=== PATIENT | male | born 1965 | race African-American/Black ===

== ENCOUNTER 2016-06-21 08:44 | Day surgery (SDC) | payer OTHER ==
[~2016-06-21 08:44] MED LIST: EPINEPHRINE INJ 1 MG/10 ML DISP.SYRIN ONE; FLUMAZENIL INJ 0.5 MG/5 ML VIAL IV ONE; GLUCAGON,HUMAN RECOMB 1 MG INJ ONE; GLYCOPYRROLATE INJ 0.4 MG/2 ML VIAL ONE; LIDOCAINE 2% JELLY 30 ML TUBE ONE; NALOXONE HCL INJ/PF 0.4 MG/1 ML SDV ONE; ONDANSETRON HCL INJ/PF 4 MG/2 ML SDV ONE; PROMETHAZINE HCL INJ 25 MG/1 ML VIAL ONE
[2016-06-21] MEDS: MIDAZOLAM 2 MG/2 ML INJ ONE ×2 (09:04→09:07)
[2016-06-21] MEDS: FENTANYL CITRATE INJ/PF 100 MCG/2 ML AMPUL ONE ×2 (09:06→09:10)
[2016-06-21 10:57] VITALS: BP 127/73
[2016-06-21 11:11] LABS: ABSOLUTE LYMPHOCYTES (AUTO) 1.9 10^3/uL (0.5-4.7); ABSOLUTE MONOCYTES (AUTO) 0.4 10^3/uL (0.1-1.4); BASOPHILS % (AUTO) 0.4 % (0-2); EOSINOPHILS % (AUTO) 0.4 % (0-6); HEMATOCRIT 44.9 % (37.9-51.0); HEMOGLOBIN 14.9 g/dL (13.5-17.0); HGB HCT DIFFERENCE -0.2; LYMPHOCYTES % (AUTO) 30.1 % (13-45); MEAN CORPUSCULAR HEMOGLOBIN 30.1 pg (27.0-33.4); MEAN CORPUSCULAR HGB CONC 33.2 g/dL (32.0-36.0); MEAN CORPUSCULAR VOLUME 91 fl (80-97); MONOCYTES % (AUTO) 6.6 % (3-13); RED BLOOD COUNT 4.95 10^6/uL (4.35-5.55); RED CELL DISTRIBUTION WIDTH 14.2 % (11.5-14.0); SEGMENTED NEUTROPHILS % (AUTO) 62.5 % (42-78); WHITE BLOOD COUNT 6.5 10^3/uL (4.0-10.5)
[2016-06-21 11:29] LABS: ALANINE AMINOTRANSFERASE 26 U/L (21-72); ALBUMIN 4.7 g/dL (3.5-5.0); ALKALINE PHOSPHATASE 42 U/L (38-126); ANION GAP 10 (5-19); ASPARTATE AMINO TRANSFERASE 26 U/L (17-59); BILIRUBIN,DIRECT 0.1 mg/dL (0.0-0.4); BILIRUBIN,TOTAL 0.6 mg/dL (0.2-1.3); BLOOD UREA NITROGEN 9 mg/dL (7-20); CALCIUM 10.3 mg/dL (8.4-10.2); CARBON DIOXIDE 30 mmol/L (22-30); CHLORIDE 103 mmol/L (98-107); CREATININE RESULT 0.95 mg/dL (0.52-1.25); GLUCOSE 95 mg/dL (75-110); POTASSIUM 4.5 mmol/L (3.6-5.0); TOTAL PROTEIN 7.3 g/dL (6.3-8.2)
[2016-06-21 12:01] LABS: CARCINOEMBRYONIC ANTIGEN 0.9 ng/mL (<3.0)
--- NOTE | 2016-06-21 12:13 | OPERATIVE REPORT E ---
Operative Report NAME: REINALDO THOMPSON : 1965 AGE: 50Y DATE OF SURGERY: 06/21/2016 ROOM: PREOPERATIVE DIAGNOSES: 1. Colon screening. 2. Strong family history of colon cancer, father. OPERATION: Colonoscopy. SURGEON: EDYTA SWANN M.D. ANESTHESIA: 1. Versed 3 mg. 2. Fentanyl 100 mcg. TISSUE REMOVED OR ALTERED: None. DESCRIPTION OF PROCEDURE: RECTAL EXAM: External hemorrhoids, enlarged prostate. SIGMOID, DESCENDING COLON: Mild nonspecific colitis, erythema in the sigmoid. TRANSVERSE COLON: Normal. ASCENDING COLON: Normal. CECUM: Normal. Scope withdrawn from cecum, ascending, transverse, descending, sigmoid, all the way to the rectum. CONCLUSION: 1. External hemorrhoids. 2. Localized erythema in the sigmoid. 3. Mild colitis. 4. No polyps. 5. No malignancy. 6. Enlarged prostate. PLAN: 1. Lab studies. 2. Follow up office visit in the next few days. 3. Consider followup colonoscopy after 3-5 years. DICTATING PHYSICIAN: EDYTA SWANN M.D. [id number] PHY#: [id number] ID: [id number] JOB#: [id number] ACCT: [id number] cc:EDYTA SWANN M.D. , [facility] >
--- NOTE | 2016-06-21 12:18 | DISCHARGE SUMMARY E ---
Discharge Summary NAME: REINALDO THOMPSON : 1965 AGE: 50Y ADMITTED: 06/21/2016 DISCHARGED: 06/23/2016 FINAL DIAGNOSES: 1. ENLARGED PROSTATE. 2. EXTERNAL HEMORRHOIDS. 3. LOCALIZED SIGMOID COLITIS. HISTORY: A 50-year-old male with strong history of malignancy (father). Patient does use alcohol and marijuana. He has hernia repair. He has anxiety. His colon shows no polyps. No malignancy. DISCHARGE PLAN: 1. Lab study. 2. Consider follow-up colon, 3 to 5 years. FINAL DIAGNOSES: 1. EXTERNAL HEMORRHOIDS. 2, LOCALIZED ERYTHEMA IN THE SIGMOID COLON. 3. MILD COLITIS. DISCHARGE SUMMARY: Follow-up colon, 3 to 5 years. DICTATING PHYSICIAN: EDYTA SWANN M.D. [id number] PHY#: [id number] ID: [id number] JOB#: [id number] ACCT: [id number] cc:EDYTA SWANN M.D. >
== END 2016-06-21 10:45 | disposition home or self-care (01) ==
LOC: END 08:44
PROVIDERS: ATTEND Specialist
PROC: 0DJD8ZZ Inspection of Lower Intestinal Tract, Via Natural or Artificial Opening Endoscopic (ICD-10-PCS; principal; 2016-06-21 09:00)
DX: Z12.11 Encounter for screening for malignant neoplasm of colon (principal); K52.9 Noninfective gastroenteritis and colitis, unspecified; K64.4 Residual hemorrhoidal skin tags; Z80.0 Family history of malignant neoplasm of digestive organs; N40.0 Benign prostatic hyperplasia without lower urinary tract symptoms; Z79.1 Long term (current) use of non-steroidal anti-inflammatories (NSAID); Z79.899 Other long term (current) drug therapy
CPT/HCPCS: 45378; 36415; 82378; 84153; 85025; 80053; J2250; J3010; J1610; J0171; J2310; J2405; J2550; J3490

== ENCOUNTER 2016-08-22 09:49 | Observation (INO) | payer OTHER ==
--- NOTE | 2016-08-22 10:48 | ER Document Report ---
ED General - General Chief Complaint: Chest Pain Stated Complaint: CHEST PAIN Time Seen by Provider: 08/22/16 09:50 Mode of Arrival: Medic Information source: Patient Notes: 50 yr old male no previous cardiac hx presents with complaitns of chest pain . The pain is a pressure sensation pain down the left arm intermittently. pt notes the pain has been ongoing over the psat year worsened today. denies any hx of htn, hyperlipdemia or diabetes. TRAVEL OUTSIDE OF THE [place] IN LAST 30 DAYS: No - HPI Onset: Other Onset/Duration: Intermittent Quality of pain: Pressure Severity: Mild Pain Level: 1 Associated symptoms: Chest pain Exacerbated by: Denies Relieved by: Denies Similar symptoms previously: Yes Recently seen / treated by doctor: Yes - Related Data Allergies/Adverse Reactions: No Known Allergies Allergy (Verified 08/22/16 10:00) Past Medical History - Social History Smoking Status: Never Smoker Cigarette use (# per day): No Chew tobacco use (# tins/day): No Smoking Education Provided: No Frequency of alcohol use: Heavy Drug Abuse: None Family History: None - Past Medical History Cardiac Medical History: Denies: Hx Coronary Artery Disease, Hx Heart Attack, Hx Hypertension Pulmonary Medical History: Denies: Hx Asthma, Hx Bronchitis, Hx COPD, Hx Pneumonia Neurological Medical History: Denies: Hx Cerebrovascular Accident, Hx Seizures Musculoskeltal Medical History: Denies Hx Arthritis Psychiatric Medical History: Reports: Hx Anxiety, Hx Post Traumatic Stress Disorder Past Surgical History: Reports: Hx Abdominal Surgery - umbilical hernia removed as a child - Immunizations Hx Diphtheria, Pertussis, Tetanus Vaccination: Yes Review of Systems - Review of Systems Notes: PHYSICAL EXAMINATION: GENERAL: Well-appearing, well-nourished and in no acute distress. HEAD: Atraumatic, normocephalic. EYES: Pupils equal round and reactive to light, extraocular movements intact, sclera anicteric, conjunctiva are normal. ENT: Nares patent, oropharynx clear without exudates. Moist mucous membranes. NECK: Normal range of motion, supple without lymphadenopathy LUNGS: Breath sounds clear to auscultation bilaterally and equal. No wheezes rales or rhonchi. HEART: Regular rate and rhythm without murmurs ABDOMEN: Soft, nontender, nondistended abdomen. No guarding, no rebound. No masses appreciated. Musculoskeletal: Normal range of motion, no pitting or edema. No cyanosis. NEUROLOGICAL: Cranial nerves grossly intact. Normal speech, normal gait. Normal sensory, motor exams PSYCH: Normal mood, normal affect. SKIN: Right anterior chest wall lipoma Physical Exam - Vital signs Vitals: Temp Pulse Ox 98.1 F 100 08/22/16 09:51 08/22/16 09:51 Course - Re-evaluation Re-evalutation: 08/22/16 11:36 Set of cardiac enzymes and EKG are negative. Patient will require cardiac workup 08/22/16 11:41 - Vital Signs Vital signs: Temp Pulse Resp BP Pulse Ox 98.1 F 16 126/89 H 100 08/22/16 10:01 08/22/16 11:01 08/22/16 11:00 08/22/16 11:01 - Laboratory Result Diagrams: 08/22/16 10:16 08/22/16 10:16 Laboratory results interpreted by me: 08/22/16 10:16 WBC 3.9 L - Diagnostic Test Radiology reviewed: Image reviewed, Reports reviewed - EKG Interpretation by Nc EKG shows normal: Sinus rhythm, Under[place], Intervals, QRS Complexes Discharge - Discharge Clinical Impression: Chest pain Qualifiers: Chest pain type: unspecified Qualified Code(s): R07.9 - Chest pain, unspecified Shoulder pain, left Qualifiers: Chronicity: acute Qualified Code(s): M25.512 - Pain in left shoulder Condition: Stable Disposition: ADMITTED OBSERVATION Admitting Provider: Hospitalist Unit Admitted: Telemetry
[2016-08-22 10:58] LABS: ABSOLUTE LYMPHOCYTES (AUTO) 1.6 10^3/uL (0.5-4.7); ABSOLUTE MONOCYTES (AUTO) 0.3 10^3/uL (0.1-1.4); BASOPHILS % (AUTO) 0.6 % (0-2); EOSINOPHILS % (AUTO) 0.3 % (0-6); HEMATOCRIT 42.5 % (37.9-51.0); HEMOGLOBIN 14.1 g/dL (13.5-17.0); HGB HCT DIFFERENCE -0.2; LYMPHOCYTES % (AUTO) 40.6 % (13-45); MEAN CORPUSCULAR HEMOGLOBIN 30.2 pg (27.0-33.4); MEAN CORPUSCULAR HGB CONC 33.1 g/dL (32.0-36.0); MEAN CORPUSCULAR VOLUME 91 fl (80-97); MONOCYTES % (AUTO) 7.7 % (3-13); RED BLOOD COUNT 4.65 10^6/uL (4.35-5.55); RED CELL DISTRIBUTION WIDTH 13.8 % (11.5-14.0); SEGMENTED NEUTROPHILS % (AUTO) 50.8 % (42-78); WHITE BLOOD COUNT 3.9 10^3/uL (4.0-10.5)
--- NOTE | 2016-08-22 11:17 | RADIOLOGY REPORT (SQ) ---
EXAM DESCRIPTION: CHEST SINGLE VIEW COMPLETED DATE/TIME: 08/22/2016 11:09 am REASON FOR STUDY: chest pain COMPARISON: 02/14/2016 EXAM PARAMETERS: NUMBER OF VIEWS: One view. TECHNIQUE: Single frontal radiographic view of the chest acquired. RADIATION DOSE: NA LIMITATIONS: None. FINDINGS: LUNGS AND PLEURA: No opacities, masses or pneumothorax. No pleural effusion. MEDIASTINUM AND HILAR STRUCTURES: No masses. Contour normal. HEART AND VASCULAR STRUCTURES: Heart normal in size. Normal vasculature. BONES: No acute findings. HARDWARE: None in the chest. OTHER: No other significant finding. IMPRESSION: NO ACUTE RADIOGRAPHIC FINDING IN THE CHEST. TECHNICAL DOCUMENTATION: JOB ID: [id number]
[2016-08-22 11:22] LABS: CREATINE KINASE MB 0.62 ng/mL (<4.55); TROPONIN I 0.016 ng/mL
[2016-08-22 11:50] LABS: ALANINE AMINOTRANSFERASE 34 U/L (21-72); ALBUMIN 4.4 g/dL (3.5-5.0); ALKALINE PHOSPHATASE 47 U/L (38-126); ANION GAP 9 (5-19); ASPARTATE AMINO TRANSFERASE 32 U/L (17-59); BILIRUBIN,DIRECT 0.4 mg/dL (0.0-0.4); BILIRUBIN,TOTAL 0.6 mg/dL (0.2-1.3); BLOOD UREA NITROGEN 15 mg/dL (7-20); CALCIUM 9.8 mg/dL (8.4-10.2); CARBON DIOXIDE 27 mmol/L (22-30); CHLORIDE 103 mmol/L (98-107); CREATINE KINASE 175 U/L (55-170); CREATININE RESULT 1.04 mg/dL (0.52-1.25); GLUCOSE 106 mg/dL (75-110); POTASSIUM 4.7 mmol/L (3.6-5.0); SODIUM 138.8 mmol/L (137-145); TOTAL PROTEIN 7.1 g/dL (6.3-8.2)
[2016-08-22] MEDS ORDERED: ACETAMINOPHEN 325 MG TABLET PO ONE (11:52)
--- NOTE | 2016-08-22 11:55 | EKG REPORT ---
SEVERITY:- NORMAL ECG - SINUS RHYTHM : Confirmed by: Toby Ellis MD 22-Aug-2016 11:54:56
[2016-08-22] MEDS ORDERED: ENOXAPARIN SODIUM INJ 40 MG/0.4 ML DISP.SYRIN SUBCUT ONE (13:00)
[2016-08-22] MEDS ORDERED: LORAZEPAM 1 MG TABLET PO PRN (14:53)
[2016-08-22] MEDS ORDERED: FOLIC ACID 1 MG TABLET PO SCH (18:00)
[2016-08-22] MEDS ORDERED: LANSOPRAZOLE 30 MG TAB.RAP.DR PO ONE (18:00)
[2016-08-22] MEDS ORDERED: THIAMINE HCL 100 MG TABLET PO SCH (18:00)
[2016-08-22] MEDS ORDERED: ATORVASTATIN CALCIUM 40 MG TABLET PO SCH (22:00)
[2016-08-23 05:49] LABS: CHOLESTEROL 199.62 mg/dL (0-200); Direct HDL 80 mg/dL (>40); TRIGLYCERIDES 77 mg/dL (<150)
[2016-08-23 06:00] LABS: DIRECT LDL 85 mg/dL (<100)
[2016-08-23] MEDS ORDERED: LANSOPRAZOLE 30 MG TAB.RAP.DR PO SCH (06:00)
--- NOTE | 2016-08-23 07:24 | HISTORY AND PHYSICAL E ---
History and Physical NAME: REINALDO THOMPSON : 1965 AGE: 50Y ADMITTED: 08/22/2016 ROOM: 435 CODE STATUS: FULL CODE. PRIMARY CARE PROVID[facility]: [facility] CHIEF COMPLAINT: Chest pain. HISTORY OF PRESENT ILLNESS: The patient is a 50-year-old -[place] male with a past medical history of osteoarthritis and a past history of tobacco dependency. The patient presented to the emergency [facility] from [facility] with a chief complaint of chest pain. According to the patient, for the past 2 months he has had intermittent episodes of sharp substernal chest pain which will radiate down his left arm. Usually these are accompanied with episodes of diaphoresis and at times shortness of breath. The patient states that even after the pain resolves he feels finger tingling afterwards. The patient had finally gotten to his appointment at [facility] and once he relayed this story was sent to the emergency department by EMS. The patient did receive aspirin and Nitro from EMS with complete resolution of symptoms. Upon presentation to the emergency department, the patient was found to be normotensive. EKG reveals sinus rhythm. Chest x-ray was unremarkable but given the patient's risk factors he was referred to the hospitalist for admission and management. HOME MEDICATIONS: Include: 1. Wellbutrin 150 mg p.o. b.i.d. 2. Voltaren 1 topical application as needed. ALLERGIES: No known drug allergies. SOCIAL HISTORY: The patient currently resides at home. The patient's surrogate decision maker is Kristen Lopez who may be reached at [phone]. The patient does have a history of tobacco use that equates approximately 27-pack years. The patient quit smoking in 2011. The patient does admit to daily alcohol use consisting of about 4 beers a day. The patient denies any symptoms of withdrawal or shakiness associated with not drinking alcohol. The patient denies any recent illicit drug use but does admit to marijuana use but has not smoked in about 3 months. PAST MEDICAL HISTORY: Remarkable for: 1. Osteoarthritis. 2. General anxiety. 3. Posttraumatic stress disorder. 4. Osteoarthritis. PAST SURGICAL HISTORY: Remarkable for umbilical hernia repair as a child. FAMILY MEDICAL HISTORY: The patient's mother is alive with no medical problems. The patient's father is secondary to cancer of unknown primary. The patient's siblings are alive and healthy. He is the oldest. The patient does have children who are healthy. REVIEW OF SYSTEMS: CONSTITUTIONAL: The patient denies any fevers, chills, no dizziness, weakness, loss of appetite. INTEGUMENTARY: The patient denies any rash or bruising, itching. Positive for episodes of diaphoresis. HEENT: The patient denies any vision changes, hearing loss, nasal drainage, sore throat and headaches. CARDIOVASCULAR: Denies any edema, heart palpitations but positive for shortness of breath and chest pain which are episodic. RESPIRATORY: Denies any cough, sputum production, hemoptysis. GASTROINTESTINAL: Denies any nausea, vomiting, diarrhea, abdominal pain, blood, hematemesis, constipation, melena, hematochezia, epigastric pain. GENITOURINARY: Denies any hematuria, pyuria, or dysuria. MUSCULOSKELETAL: The patient does have chronic joint pains but no acute joint pain. NEUROLOGICAL: Denies any seizures, tremors, loss of consciousness. HEMATOLOGICAL: Denies any lamont bleeding or easy bruising. ENDOCRINE: Denies any recent weight changes. PSYCHIATRIC: Denies suicidal or homicidal ideations. The rest of the review of the other organ systems negative. PHYSICAL EXAMINATION: GENERAL: On examination, the patient is a well-developed, well-nourished 50-year-old -[place] male who is awake, alert, and oriented to person, place, time and situation. He is verbal, conversational, ambulatory; does not appear to be in any acute distress. VITAL SIGNS: Are as follows: Temperature is 98.1, pulse 65, respirations 15, blood pressure 130/93. Oxygen saturation is 100% on 2 L. SKIN: Warm and dry. No rashes. He is not diaphoretic. HEENT: Pupils equal, round, reactive to light and accommodation. Conjunctivae pink. Knox scleral. No mouth lesions. Tongue is midline. NECK: Is supple. Patient has good dentition. No JVD. No palpable lymphadenopathy or thyromegaly. CARDIOVASCULAR: Heart is regular. There is no murmur or rub. CHEST: Clear, symmetrical, unlabored. ABDOMEN: Soft, nontender, nondistended. Bowel sounds are present. No palpable organomegaly. BACK: No CVA tenderness, sacral edema. EXTREMITIES: No clubbing, cyanosis, edema, or peripheral signs of embolization, +2 pedal pulses noted bilaterally. PSYCHIATRIC: Appropriate affect, very pleasant mood. NEUROLOGICALLY: Cranial nerves II-XII are grossly intact. DIAGNOSTICS: Lab values are as follows: Hematology obtained on 08/22/2016: WBC's , hemoglobin is 14.1, hematocrit is 42.5 platelet count is 268,000. Chemistry obtained on 08/22/2016: Sodium is 138, potassium 4.7, chloride is 103, carbon dioxide 27, BUN 15, creatinine is glucose 106. Calcium is 9.8. Bilirubin 0.6, AST 32, ALT is 34, alkaline phosphatase 47. CK 125, CK-MB 0.62, troponin 0.016, total protein 7.1, albumin 4.4. Chest x-ray obtained on 08/22/2016 reveals no acute radiographic finding of the chest. EKG obtained on 08/22/2016: Reveals sinus rhythm. IMPRESSION AND PLAN: 1. CHEST PAIN. Will observe the patient and continue in telemetry unit. Will obtain serial cardiac enzymes and repeat EKG in the a.m. Given the patient's highly suspicious story, will obtain a Cardiolite stress test and follow. Will start the patient on statin therapy. Obtain lipid panel in the a.m. and start the patient on aspirin as well. Patient is currently chest pain free. 2. ALCOHOL DEPENDENCY. The patient denies any history of withdrawals or withdrawal symptoms, however, will add p.r.n. benzodiazepine and supplement B vitamins as well and will also add b.i.d. PPI therapy to insure there is not a gastritic component to this. 3. DVT PROPHYLAXIS. Will add Lovenox. DISPOSITION: The patient is a FULL CODE. Pending patient's symptomatology and diagnostic findings, will re-evaluate in the a.m. for discharged. TIME SPENT: Time spent on this admission including assessment, plan, physical examination, patient education and family meeting is 40 minutes. The patient will be observed and continue with telemetry as the patient's expected stay will not surpass 2 midnights given his chest pain. DICTATING PHYSICIAN: GLORIA CARPIO NP [id number] PHY#: [id number] ID: [id number] JOB#: [id number] ACCT: [id number] cc:GLORIA CARPIO NP > [facility]
--- NOTE | 2016-08-23 07:57 | EKG REPORT ---
SEVERITY:- NORMAL ECG - SINUS RHYTHM : Confirmed by: Toby Ellis MD 23-Aug-2016 07:56:26
[2016-08-23] MEDS ORDERED: ENOXAPARIN SODIUM INJ 40 MG/0.4 ML DISP.SYRIN SUBCUT SCH (08:00)
[2016-08-23] MEDS ORDERED: ASPIRIN 81 MG TABLET, CHEWABLE PO SCH (10:00)
--- NOTE | 2016-08-23 12:20 | DRAGON STRESS TEST REPORT ---
INTRAVENOUS LEXISCAN CARDIOLITE STRESS TEST USING SINGLE PHOTON EMMISION COMPUTERIZED TOMOGRAPHIC. DATE OF PROCEDURE: August 23, 2016 INDICATION : Chest pain CARDIAC RISK FACTORS: Dyslipidemia RESTING EKG: Sinus rhythm, no baseline ST segment changes noted STRESS EKG: No significant changes noted with LexiScan bolus REASON FOR TERMINATION: Protocol. PROCEDURE REPORT: Baseline heart rate 70 beats per minute with blood pressure of 141/95. Patient had no significant complaints. Heart rate at 2 minutes post bolus 76 with a blood pressure of 138/82. 3 minutes post bolus heart rate 76 with blood pressure of 133/85. No significant EKG changes were noted. Patient had no significant complaints during the procedure or postprocedure. Patient injected with Aminophyllin 75 mg at 3 minutes or later after Lexiscan bolus. CONCLUSIONS: Normal EKG and hemodynamic response to IV LexiScan. NUCLEAR DATA: At rest the patient was given in 13.40 millicuries of technetium 99 sestamibi injected intravenously. As per protocol rest gated SPECT images were obtained. Subsequently the patient was given intravenous LexiScan at a dose of 0.4 mg in 5 mL intravenously, followed by flush with normal saline. Subsequently the stress dose of 41.9 millicuries of technetium 99 sestamibi was injected intravenously. As per protocol stress gated images were obtained. NUCLEAR INTERPRETATION: Both raw and processed data were used for interpretation. Visual, qualitative, computer-generated quantitative data was used. There was good myocardial uptake of technetium compound. Motion artifact and soft tissue attenuations were noted. Increased visceral uptake was noted. Decreased uptake noted in the inferior wall but is felt to be related to soft tissue and diaphragmatic attenuation. No definitive areas of transient perfusion defect noted. No definitive areas of fixed perfusion defect or scars noted. EKG gated imaging showed LV EF at 47 %, rest and stress gated EF similar visually. T. I D. ratio was 1.27 this is borderline increased. Lung heart ratio noted to be within normal limits 0.21. No significant extracardiac and abnormal radiotracer activities were noted. RV free wall uptake was noted to be within normal limits. IMPRESSION: Also refer to comments under nuclear interpretation. Also test results needs to be interpreted in the context of pretest probability. 1. There is no definitive scintigraphic evidence of LexiScan induced myocardial ischemia. 2. There is no definitive scintigraphic evidence of myocardial infarction/scar. 3. EKG gated imaging shows left ejection fraction of approximately 47 %. 4. Patient noted to have borderline transient ischemic dilatation. Clinical significance is not clear and could be related to LVH but balanced ischemia cannot be ruled out. Correlation is requested. Recent literature review indicate that in the absence of significant perfusion defect, cannot indicate increased cardiovascular event risk. 5. Clinical correlation requested as occasionally single vessel disease or balanced ischemia could be missed. In approximately 10% of the cases Lexiscan may not cause adequate vasodilatory stress. RECOMMENDATIONS: Aggressive risk factor modification, medical therapy. Close cardiology follow- up. Clinical correlation with echocardiogram derived ejection fraction. Inability to exercise by itself can lead to increased cardiovascular event risks. Consider cardiology consultation and or follow-up if clinically indicated. I AM AVAILABLE FOR CARDIOLOGY CONSULTATION AND FOLLOWUP IF REQUESTED BY SIMI Lemon M.D., [employer] Tube Sorter timing adjuster, Board certified in cardiovascular diseases, Nuclear cardiology, Echocardiography Cardiac CT and cardiac MRI Ph. [phone] CRU[facility]
[2016-08-23 13:24] VITALS: BP 135/95
[2016-08-23] MEDS ORDERED: REGADENOSON INJ 0.4 MG/5 ML DISP.SYRIN IV ONE (14:30)
[2016-08-23] MEDS ORDERED: AMINOPHYLLINE INJ/PF 250 MG/10 ML SDV IV ONE (14:30)
--- NOTE | 2016-08-23 18:31 | PDOC DISCHARGE SUMMARY ---
General - Admit/Disc Date/PCP Admission Date/Primary Care Provider: 08/22/16 11:48 Discharge Date: 08/23/16 - Discharge Diagnosis (1) Chest pain Is this a current diagnosis for this admission?: Yes (2) Impingement syndrome of left shoulder Is this a current diagnosis for this admission?: Yes - Additional Information Resuscitation Status: Full Code Discharge Diet: Cardiac Discharge Activity: Activity As Tolerated Home Medications: Bupropion HCl [Bupropion HCl Sr] 150 mg PO Q12 08/22/16 Aspirin [Aspirin 81 mg Chewable Tablet] 81 mg PO DAILY #90 tab.chew 08/23/16 Thiamine HCl [Thiamine 100 mg Tablet] 100 mg PO QPM tablet 08/23/16 History of Present Illness History of Present Illness: REINALDO THOMPSON SR is a 50 year old male who presented to the emergency department with complaints of 2 months of intermittent sharp substernal chest pain which was accompanied by diaphoresis, shortness of breath, and resolved with administration of nitroglycerin. Patient also reported residual tingling in his left fingers after these episodes. Patient is referred to the hospital service for evaluation of this. Hospital Course Hospital Course: Patient ruled out for acute coronary syndrome and was found to have an excellent cholesterol panel with an HDL of 80. Patient's LDL also in the 80s. Patient underwent Cardiolite stress test which was negative for inducible or reversible or fixed ischemia suspect patient's chest pain is likely musculoskeletal. With possibly a component of esophageal spasm. Prior review of the patient's contacts in the emergency department reveals history of cocaine in September 2015. Toxicology was not performed on this examination. Patient is advised to follow-up with his PMD for ongoing evaluation of further chest pain. Physical Exam Vital Signs: Temp Pulse Resp BP Pulse Ox 97.9 F 69 19 128/80 H 100 08/23/16 04:00 08/23/16 04:00 08/23/16 04:00 08/23/16 04:00 08/23/16 04:00 Intake & Output 08/22/16 08/23/16 08/24/16 06:59 06:59 06:59 Intake Total 500 Balance 500 Weight 96.5 kg Exam: General: no acute respiratory distress HEENT: AT/NC, PERRL,EOMI, oropharynx is moist, pink, no scleral icterus, no conjunctival injection Neck: No JVD, trachea midline Chest: Clear to auscultation bilaterally, no wheezes rhonchi or rales CV: Regular rate and rhythm, normal S1 and S2, no murmur, rub, or gallop Abdomen: Soft, nontender to palpation, nondistended, active bowel sounds; no rebound, rigidity, or guarding Extremities: No cyanosis, clubbing or edema Neuro: Cranial nerves II through XII are grossly intact without focal deficits Psych: Normal mood and affect Results Laboratory Results: 08/23/16 05:12 Triglycerides 77 Cholesterol 199.62 LDL Cholesterol Direct 85 VLDL Cholesterol 15.0 HDL Cholesterol 80 08/22/16 08/22/16 16:23 22:00 Troponin I < 0.012 < 0.012 Impressions: Chest X-Ray 08/22/16 10:44 IMPRESSION: NO ACUTE RADIOGRAPHIC FINDING IN THE CHEST. Qualifiers PATEINT BEING DISCHARGED WITH ANY OF THE FOLLOWING DIAGNOSIS?: No Plan Time Spent: Less than 30 Minutes
== END 2016-08-23 14:31 | disposition home or self-care (01) ==
LOC: ER 09:49 → EH 11:48 → UNDOADMOB 12:30 → EH 12:30 → 4S 14:42
DX: R07.2 Precordial pain (principal); R61 Generalized hyperhidrosis; M75.42 Impingement syndrome of left shoulder; R06.02 Shortness of breath; R20.2 Paresthesia of skin; M19.90 Unspecified osteoarthritis, unspecified site; F10.20 Alcohol dependence, uncomplicated; D17.79 Benign lipomatous neoplasm of other sites; Z79.1 Long term (current) use of non-steroidal anti-inflammatories (NSAID); Z79.899 Other long term (current) drug therapy; Z87.891 Personal history of nicotine dependence; Z80.9 Family history of malignant neoplasm, unspecified; Z79.82 Long term (current) use of aspirin
CPT/HCPCS: 93005 ×2; 99285; 96372; 36415 ×2; 82553; 82550; 85025; 80053; 84484; 80061; 93017; 71010; 78452; 93010 ×2; G0378 ×3; A9500; J2785; J1650 ×2; J3490; J0280; Q9969

== ENCOUNTER 2019-04-08 10:32 | Emergency (ER) | payer OTHER ==
[2019-04-08 11:07] VITALS: BP 151/90
[2019-04-08] MEDS ORDERED: LIDOCAINE 5% (700 MG) TRANSDERMAL ADH..PATCH TP ONE (11:46)
[2019-04-08] MEDS ORDERED: PREDNISONE 20 MG TABLET PO ONE (11:46)
--- NOTE | 2019-04-08 11:50 | ER Document Report ---
HPI - HPI Time Seen by Provider: 04/08/19 11:39 Onset: Last week Onset/Duration: Persistent Quality of pain: Achy Pain Level: 4 Context: Patient presents with right sided lower back pain that radiates to the right leg that is been off and on for the past week and became constant today. Patient denies any fever, urinary retention, or weakness. Patient denies any history of diabetes or IV drug use. Patient denies any trauma. Patient states he has had sciatica in the past and suspects the same today. Associated Symptoms: denies: Fever, Nausea, Vomiting Exacerbated by: Movement, Walking Relieved by: Denies Similar symptoms previously: Yes Recently seen / treated by doctor: No - ROS ROS below otherwise negative: Yes Systems Reviewed and Negative: Yes All other systems reviewed and negative - CONSTITUTIONAL Constitutional: DENIES: Fever, Chills - URINARY Urinary: DENIES: Dysuria, Urgency, Frequency Notes: No retention or incontinence - MUSCULOSKELETAL Musculoskeletal: REPORTS: Extremity pain - DERM Skin Color: Normal Skin Problems: None Past Medical History - General Information source: Patient - Social History Smoking Status: Never Smoker Frequency of alcohol use: Social Drug Abuse: Marijuana Occupation: None Family History: None Patient has suicidal ideation: No Patient has homicidal ideation: No Neurological Medical History: Denies: Hx Cerebrovascular Accident, Hx Seizures Musculoskeletal Medical History: Denies Hx Arthritis, Reports Other - Sciatica Psychiatric Medical History: Reports: Hx Anxiety, Hx Post Traumatic Stress Disorder Past Surgical History: Reports: Hx Abdominal Surgery - umbilical hernia removed as a child - Immunizations Hx Diphtheria, Pertussis, Tetanus Vaccination: Yes Vertical Provider Document - CONSTITUTIONAL Agree With Documented VS: Yes Exam Limitations: No Limitations General Appearance: WD/WN, No Apparent Distress Notes: PHYSICAL EXAMINATION: GENERAL: Well-appearing, well-nourished and in no acute distress. HEAD: Atraumatic, normocephalic. EYES: sclera clear, anicteric, conjunctiva are normal. ENT: nares patent, Moist mucous membranes. NECK: Normal range of motion, supple no lymphadenopathy LUNGS: respirations unlabored HEART: Regular rate and rhythm without murmurs EXTREMITIES: Normal range of motion, no pitting or edema. No cyanosis. Gait normal, pt ambulates without difficulty BACK: Right SI joint tenderness, no midline tenderness, no deformities or step- offs. No CVA tenderness. NEUROLOGICAL: Cranial nerves grossly intact. Normal speech, normal gait. No saddle anesthesia. No foot drop PSYCH: Normal mood, normal affect. SKIN: Warm, Dry, normal turgor, no rashes or lesions noted. - INFECTION CONTROL TRAVEL OUTSIDE OF THE [place] IN LAST 30 DAYS: No Course - Re-evaluation Re-evalutation: 04/08/19 11:48 The patient presents with low back pain without signs of spinal cord compression, cauda equina syndrome, infection, aneurysm, or other serious etiology. The patient is neurologically intact. Given the extremely risk of these diagnoses further testing and evaluation for these possibilities does not appear to be indicated at this time. Patient has been instructed to return if the symptoms worsen or change in any way. - Vital Signs Vital signs: Temp Pulse Resp BP Pulse Ox 98.3 F 80 18 151/90 H 100 04/08/19 10:45 04/08/19 10:45 04/08/19 10:45 04/08/19 10:45 04/08/19 10:45 Discharge - Discharge Clinical Impression: Sciatica Qualifiers: Laterality: right Qualified Code(s): M54.31 - Sciatica, right side Condition: Stable Disposition: HOME, SELF-CARE Instructions: Ice Packs ([facility]), Low Back Pain ([facility]), Sciatica ([facility]) Additional Instructions: Return immediately for any new or worsening symptoms Followup with your primary care provider, call tomorrow to make a followup appointment Prescriptions: Prednisone [Deltasone 20 mg Tablet] 3 tab PO DAILY 5 Days tablet Lidocaine [Lidoderm 5% (700 mg) Transdermal Patch] 1 patch TP DAILY PRN #10 adh..patch PRN Reason: Methocarbamol [Robaxin 500 Mg Tablet] 500 mg PO QID PRN #30 tablet PRN Reason: Referrals: [facility] [Provider Group] - Follow up as needed
== END 2019-04-08 11:57 | disposition home or self-care (01) ==
LOC: ER 10:32
DX: M54.41 Lumbago with sciatica, right side (principal)
CPT/HCPCS: 99283; J7512

== ENCOUNTER 2019-04-18 04:44 | Emergency (ER) | payer OTHER ==
[2019-04-18 04:59] VITALS: BP 134/93
--- NOTE | 2019-04-18 15:18 | ER Document Report ---
Entered by NOE BALLARD SCRIBE 04/18/19 0803 Acting as scribe for:GAVIN MADDOX MD ED Neck/Back Problem - General Chief Complaint: Low Back Pain Stated Complaint: LOWER BACK PAIN Time Seen by Provider: 04/18/19 07:30 Primary Care Provider: KESHA,MARYJANE [Primary Care Provider] - Follow up in 3-5 days Mode of Arrival: Ambulatory Information source: Patient Notes: This 53 year old male patient presents to the emergency department today with complaints of right sided lower back pain that radiates down the back of his right leg and into his right foot/toes. Patient states the toes/feet are numb and tingly. Patient states that he has had this pain intermittently for the last x3 years and was seen here on 04/08/19 for this same pain. Patient was diagnosed with sciatica and was sent home on prednisone, a muscle relaxer, and lidocaine patches. Patient states that he does not think that the muscle relaxer or lidocaine patches helped at all but he did get some relief with the prednisone. TRAVEL OUTSIDE OF THE [place] IN LAST 30 DAYS: No - Related Data Allergies/Adverse Reactions: No Known Allergies Allergy (Verified 04/08/19 11:08) Home Medications: robaxin. buprion. vitamin d Past Medical History - General Information source: Patient - Social History Smoking Status: Never Smoker Cigarette use (# per day): No Frequency of alcohol use: None Drug Abuse: None Lives with: Family Family History: None Patient has suicidal ideation: No Patient has homicidal ideation: No Musculoskeletal Medical History: Reports Other - Hx sciatica Psychiatric Medical History: Reports: Hx Anxiety, Hx Post Traumatic Stress Disorder Past Surgical History: Reports: Hx Abdominal Surgery - umbilical hernia removed as a child - Immunizations Hx Diphtheria, Pertussis, Tetanus Vaccination: Yes Review of Systems - Review of Systems Constitutional: No symptoms reported EENT: No symptoms reported Cardiovascular: No symptoms reported Respiratory: No symptoms reported Gastrointestinal: No symptoms reported Genitourinary: No symptoms reported Male Genitourinary: No symptoms reported Musculoskeletal: See HPI, Back pain Skin: No symptoms reported Hematologic/Lymphatic: No symptoms reported Neurological/Psychological: See HPI, Numbness - right foot/toes -: Yes All other systems reviewed and negative Physical Exam - Vital signs Vitals: Temp Pulse Resp BP Pulse Ox 97.2 F 63 16 134/93 H 99 01/16/20 04:58 04/18/19 04:58 04/18/19 04:58 04/18/19 04:58 04/18/19 04:58 Interpretation: Normal - General General appearance: Appears well, Alert - HEENT Head: Normocephalic, Atraumatic Eyes: Normal Pupils: PERRL - Respiratory Respiratory status: No respiratory distress Chest status: Nontender Breath sounds: Normal Chest palpation: Normal - Cardiovascular Rhythm: Regular Heart sounds: Normal auscultation Murmur: No - Abdominal Inspection: Normal Distension: No distension Bowel sounds: Normal Tenderness: Nontender Organomegaly: No organomegaly - Back Back: Tender - There is no right low back or buttock tenderness over where the patient's pain is located. Indicates the pain is just lateral to the midline of the posterior right leg with numbness/tingling of the right foot. - Extremities General upper extremity: Normal inspection. No: Edema General lower extremity: Normal inspection. No: Edema - Neurological Neuro grossly intact: Yes Cognition: Normal Orientation: AAOx4 [place] Coma Scale Eye Opening: Spontaneous [place] Coma Scale Verbal: Oriented [place] Coma Scale Motor: Obeys Commands [place] Coma Scale Total: 15 Speech: Normal - Psychological Associated symptoms: Normal affect, Normal mood - Skin Skin Temperature: Warm Skin Moisture: Dry Skin Color: Normal Course - Vital Signs Vital signs: Temp Pulse Resp BP Pulse Ox 98.7 F 71 16 134/93 H 98 04/18/19 08:35 04/18/19 08:35 04/18/19 04:58 04/18/19 04:58 04/18/19 08:35 Discharge - Discharge Clinical Impression: Sciatica of right side Condition: Stable Disposition: HOME, SELF-CARE Additional Instructions: Sciatica Your symptoms suggest "sciatica." The pain of sciatica typically radiates down the leg. Numbness in the foot or calf may also occur. Sciatica is caused by irritation of the sciatic nerve or its branches. The irritation can be due to a herniated disk in the spine, swelling and inflammation in the muscles surrounding the sciatic nerve, or direct injury of the nerve itself. Most cases of sciatica will resolve with medical treatment. Bed rest is usually recommended initially. Surgery is only necessary when the condition will not improve with rest and antiinflammatory medication. Muscle relaxers are often given if muscle soreness is present. A CAT scan or MRI of the back may be performed if a herniated disk is suspected. Re-examination is necessary if you develop increasing numbness, localized weakness in the foot or ankle, or if the pain does not respond to rest. Your history and physical exam suggest you have a right S1 radiculopathy. This is also called sciatica. The most common cause of this is a bulging disc between the fifth lumbar vertebra and the first sacral vertebra. You will be started on a brief course of steroids to suppress inflammation and swelling. You will also be prescribed gabapentin which will frequently reduce the severity of the symptoms you are experiencing. You should follow-up with your primary care provider at the [place] [facility] to discuss starting a physical therapy regimen, and possibly getting an MRI scan to see if it is a problem that will benefit from epidural injections. RETURN TO THE EMERGENCY ROOM IF ANY NEW OR WORSENING SYMPTOMS. Prescriptions: Prednisone [Deltasone 20 mg Tablet] 20 mg PO TID #15 tablet Gabapentin [Neurontin 300 mg Capsule] 300 mg PO ASDIR PRN #90 cap PRN Reason: [facility]errals[facility] - Follow up in 3-5 days Scribe Attestation: 04/18/19 08:04 I personally performed the services described in the documentation, reviewed and edited the documentation which was dictated to the scribe in my presence, and it accurately records my words and actions. I personally performed the services described in the documentation, reviewed and edited the documentation which was dictated to the scribe in my presence, and it accurately records my words and actions.
== END 2019-04-18 09:04 | disposition home or self-care (01) ==
LOC: ER 04:44
DX: M54.41 Lumbago with sciatica, right side (principal); Z79.899 Other long term (current) drug therapy
CPT/HCPCS: 99283

== ENCOUNTER 2019-04-26 04:24 | Emergency (ER) | payer OTHER ==
[2019-04-26 04:38] VITALS: BP 125/68
== END 2019-04-26 09:17 | disposition left against medical advice (07) ==
LOC: ER 04:24
DX: Z53.21 Procedure and treatment not carried out due to patient leaving prior to being seen by health care provider (principal); M54.9 Dorsalgia, unspecified